=== PATIENT | female | born 1990 | race Caucasian/White ===

== ENCOUNTER → 2016-08-12 | Outpatient (CLI) | payer BC ==
--- NOTE | 2016-08-12 14:05 | US ---
EXAMINATION TYPE: US OB <= 14 wk fetus DATE OF EXAM: 08/12/2016 11:52 AM COMPARISON: NONE CLINICAL HISTORY: Comfrm Dates Z36. EXAM PERFORMED: OBTA EXAM MEASUREMENTS: GESTATIONAL AGE / DATING Physician Established: (10 weeks/4 days) EDC: 03/06/2017 Dates by LMP: [email or web address] Dates by First Scan: MEDICAL AUTHORIZATION SPECIALIST Dates by Current Scan for: (9 weeks/1 days) EDC: 03/16/2017 MATERNAL ANATOMY Uterus: 10.0 x 7.8 x 7.1cm Right Ovary: 3.7 x 3.1 x 3.6cm Left Ovary: 2.9 x 3.0 x 2.5cm Post CDS / Adnexa: wnl Presence of free fluid: no Presence of corpus luteal cyst: yes, right = 2.8cm Presence of subchorionic bleed: no GESTATION / SURVEY CRL: 2.4cm (9 weeks/1 days) MSD: wnl Yolk Sac (normal less than 6mm): 0.4cm Heart Rate: 176 bpm Rhythm: Normal IUP: Viable IUP Date of LMP: unknown Beta HcG (if available): not available TECHNOLOGIST IMPRESSION: Viable 9w1d fetus seen and appears wnl IMPRESSION: Single viable intrauterine corresponding to ultrasound age 9 weeks 1 day with estimated evelin e of delivery second March 2017 by today's exam
== END | disposition home or self-care (01) ==
LOC: RADUSWWP 11:17
PROVIDERS: ATTEND Obstetrics & Gynecology
DX: Z36 Encounter for antenatal screening of mother (principal); Z3A.09 9 weeks gestation of pregnancy
CPT/HCPCS: 76801

== ENCOUNTER → 2016-08-29 | Outpatient (CLI) | payer BC ==
[2016-08-29 13:03] LABS: CH 31.9; CHCM 33.7; HCT 38.8 % (34.0-46.0); HDW 2.11; HGB 12.6 gm/dL (11.4-16.0); MCH 30.9 pg (25.0-35.0); MCHC 32.5 g/dL (31.0-37.0); RBC 4.09 m/uL (3.80-5.40); RDW 11.6 % (11.5-15.5); WBC 6.4 k/uL (3.8-10.6)
[2016-08-29 13:36] LABS: Glucose 75 mg/dL (74-99); Non-African American GFR(MDRD) >60 (>60 ml/min/1.73 sqM)
[2016-08-29 14:08] LABS: Hepatitis B Surface Ag Index 0.08
[2016-08-30 05:31] LABS: Toxoplasma Antibody (IgG) <3.0 IU/mL (<7.2)
[2016-08-31 15:47] LABS: HIV-1/HIV-2 Ab Screen NONREAC (NON REAC)
== END | disposition home or self-care (01) ==
LOC: LABWHC1 12:30
PROVIDERS: ATTEND Obstetrics & Gynecology
DX: Z34.81 Encounter for supervision of other normal pregnancy, first trimester (principal); Z3A.00 Weeks of gestation of pregnancy not specified
CPT/HCPCS: 36415; 82565; 82947; 85027; 86762; 86777; 86778; 86780; 86850; 86900; 86901; 87340; 87389

== ENCOUNTER → 2016-10-02 | Outpatient (CLI) | payer BC ==
[2016-10-03 11:56] LABS: Alpha Fetoprotein 34.7 ng/mL; Alpha Fetoprotein (M.O.M) 0.93; B-HCG (M.O.M.) 0.57; Gestational Age (days) 3; Human Chorionic Gonadotropin 20.1 IU/mL; Interpretation SeeBelow; Maternal Age at EDD (Yrs) 25; Unconjugated Estriol (M.O.M.) 1.27
== END ==
LOC: LABWHC1 12:50
PROVIDERS: ATTEND Obstetrics & Gynecology
DX: Z34.02 Encounter for supervision of normal first pregnancy, second trimester (principal); Z3A.00 Weeks of gestation of pregnancy not specified
CPT/HCPCS: 36415; 82105; 82677; 84702; 86336

== ENCOUNTER → 2016-12-11 | Outpatient (CLI) | payer BC ==
[2016-12-11 10:57] LABS: CH 32.6; CHCM 33.6; HCT 33.2 % (34.0-46.0); HDW 2.24; MCH 32.3 pg (25.0-35.0); MCHC 33.1 g/dL (31.0-37.0); MCV 97.4 fL (80.0-100.0); Mean Platelet Volume 8.4; RDW 12.8 % (11.5-15.5); WBC 8.4 k/uL (3.8-10.6)
== END | disposition home or self-care (01) ==
LOC: LABWHC1 09:07
PROVIDERS: ATTEND Obstetrics & Gynecology
DX: Z34.82 Encounter for supervision of other normal pregnancy, second trimester (principal); Z3A.00 Weeks of gestation of pregnancy not specified
CPT/HCPCS: 36415; 82950; 85027

== ENCOUNTER 2017-02-21 06:17 | Outpatient (CLI) | payer BC ==
[2017-02-21 06:59] VITALS: BP 111/65; PULSE 106; RESP 15; TEMP 97.5
--- NOTE | 2017-02-21 10:16 | P.MSEPDOC ---
Presenting Problems - Arrival Data Date of Arrival on Unit: 02/21/17 Time of Arrival on Unit: 06:15 Mode of Transport: Wheelchair - Complaint OB-Reason for Admission/Chief Complaint: Decreased Movement Medical History - Information : 1 Para: 0 Term: 0 : 0 Abortions: Spontaneous or Elective: 0 Number of Living Children: 0 - Gestational Age Expected Date of Delivery: 03/16/17 Gestational Age by TRINO (wks/days): 36 Weeks and 5 Days Review of Systems - Review of Systems Constitutional: No problems Breast: No problems ENT: No problems Cardiovascular: No problems Respiratory: No problems Gastrointestinal: No problems Genitourinary: No problems Musculoskeletal: No problems Neurological: No problems Skin: No problems Vital Signs - Temperature Temperature: 97.5 F Temperature Source: Temporal Artery Scan - Pulse Pulse Oximetery Pulse Rate: 106 Pulse Assessment Method: Pulse Oximetry - Respirations Respiratory Rate: 15 Oxygen Delivery Method: Room Air - Blood Pressure Right Arm Blood Pressure: 111/65 Blood Pressure Mean: 80 Blood Pressure Source: Automatic Cuff Medical Screen Scoring (Pre) - Cervical Exam Dilation: Exam Deferred Effacement: Exam Deferred Membranes: Intact - Uterine Contractions Frequency: N/A Duration: N/A Intensity: N/A - Maternal Vital Signs Maternal Temperature: N/A Maternal Blood Pressure: N/A Signs of Preeclampsia: N/A Maternal Respirations: N/A - Maternal Trauma Maternal Trauma: N/A - Assessment Baseline FHR: 145 Heart Rate - NICHD Category: Category I (Normal) = 0 NST: Reactive Position: N/A Station: N/A - Total Score Total Score (Pre): 0 - Level of Risk Level of Risk: Low (0-5) Physician Notification (Pre) - Physician Notified Physician Notified Date: 02/21/17 Physician Notified Time: 06:48 Physician/Practitioner Notifed:: Dr Pak New Order Received: Yes Disposition - Disposition OB Disposition: Discharge to home Discharge Date: 02/21/17 Discharge Time: 06:59 I agree with the RN Medical Screening Exam: Yes Risk & Benefit of care provided described in d/c instruction: Yes Diagnosis: DECREASED MOVEMENTS, THIRD TRIMESTER, FETUS 1
== END 2017-02-21 07:00 | disposition home or self-care (01) ==
LOC: FBPOP 06:17
PROVIDERS: ATTEND Obstetrics & Gynecology
DX: O36.8130 Decreased fetal movements, third trimester, not applicable or unspecified (principal); Z3A.36 36 weeks gestation of pregnancy
CPT/HCPCS: 59025; 99213

== ENCOUNTER 2017-03-18 01:20 | Inpatient (IN) | payer BC ==
[2017-03-18] MEDS ORDERED: CARBOPROST TROMETHAMINE 250 MCG/ML 1 ML AMP IM PRN (01:35)
[2017-03-18] MEDS ORDERED: TERBUTALINE 1 MG/ML VIAL SQ PRN (01:35)
[2017-03-18] MEDS ORDERED: OXYTOCIN 10 UNIT/ML 1 ML VIAL IM PRN (01:35)
[2017-03-18] MEDS ORDERED: LIDOCAINE 1% (PF) 10 MG/ML (30 ML SDV) SQ PRN (01:35)
[2017-03-18] MEDS: LACTATED RINGERS 1,000 ML IV SCH ×2 (01:35→05:37)
[2017-03-18] MEDS ORDERED: METHYLERGONOVINE 0.2 MG/ML 1 ML AMP IM PRN (01:35)
[2017-03-18 01:53] LABS: Basophils % (A) 0 %; CH 32.3; CHCM 32.6; Eosinophils # (A) 0.1 k/uL (0-0.7); Eosinophils % (A) 1 %; HDW 2.16; HGB 12.7 gm/dL (11.4-16.0); Luc # (Auto) 0.15; Luc % (Auto) 2; Lymphocytes # (A) 1.2 k/uL (1.0-4.8); Lymphocytes % (A) 16 %; MCH 32.4 pg (25.0-35.0); MCHC 32.5 g/dL (31.0-37.0); MCV 99.8 fL (80.0-100.0); Mean Platelet Volume 9.2; Monocytes # (A) 0.5 k/uL (0-1.0); Monocytes % (A) 7 %; Neutrophils # (A) 5.6 k/uL (1.3-7.7); Neutrophils % (A) 74 %; RBC 3.91 m/uL (3.80-5.40); RDW 12.6 % (11.5-15.5); WBC 7.6 k/uL (3.8-10.6); WBC (Perox) 7.88
[2017-03-18] MEDS ORDERED: BUTORPHANOL 1 MG/ML 1 ML VIAL IV PRN (02:09)
[2017-03-18 02:16] VITALS: BMI 28.6
--- NOTE | 2017-03-18 05:26 | P.HPOB ---
History of Present Illness H&P Date: 03/18/17 Chief Complaint: Contractions This is a 26-year-old female 1 para 0 with an estimated date of confinement of 03/16/2017, estimated gestational age of 40-2/7 weeks, who presents to labor and delivery with complaints of contractions since yesterday. She stated she had contractions all day long became stronger early this morning. She denies any rupture of membranes. care has been with Dr. Ace and she actually was scheduled for an induction of labor this morning. She states her course is been uncomplicated and her labs have been normal. labs: GC/chlamydia-negative Syphilis antibody-negative HIV-nonreactive Toxoplasma-negative Random glucose-75 Hepatitis B surface antigen-negative Hemoglobin-12.6 Rubella-immune Blood type-AB+ Antibody screen-negative Quad screen-negative Obstetrical ultrasound-normal anatomy One hour Glucola-68 Group B streptococcus-negative Obstetrical history: This is her first . Gynecologic history: Unremarkable. Social history: She is . She is unemployed. Review of Systems Constitutional: Denies chills, Denies fever Eyes: denies blurred vision, denies pain Ears, nose, mouth and throat: Denies headache, Denies sore throat Cardiovascular: Denies chest pain, Denies shortness of breath Respiratory: Denies cough Gastrointestinal: Reports abdominal pain (Contractions) Genitourinary: Reports pelvic pain, Reports Musculoskeletal: Reports low back pain Integumentary: Denies pruritus, Denies rash Neurological: Denies numbness, Denies weakness Psychiatric: Reports anxiety Past Medical History Additional Past Medical History / Comment(s): interstitial cystitis History of Any Multi-Drug Resistant Organisms: None Reported Past Surgical History: Tonsillectomy Additional Past Surgical History / Comment(s): childhood Past Anesthesia/Blood Transfusion Reactions: No Reported Reaction Past Psychological History: Anxiety Smoking Status: Never smoker Past Alcohol Use History: None Reported Past Drug Use History: None Reported - Past Family History Father Family Medical History: Diabetes Mellitus Medications and Allergies Home Medications Medication Instructions Recorded Confirmed Type Citalopram Hydrobromide [CeleXA] 10 mg PO DAILY 02/21/17 03/18/17 History Pnv No.95/Ferrous Fum/Folic AC 1 tab PO DAILY 02/21/17 03/18/17 History [ Multivitamin Tablet] Allergies Allergy/AdvReac Type Severity Reaction Status Date / Time Penicillins Allergy Rash/Hives Verified 03/18/17 01:35 sulfamethoxazole Allergy Rash/Hives Verified 03/18/17 01:35 [From Bactrim] trimethoprim [From Bactrim] Allergy Rash/Hives Verified 03/18/17 01:35 Exam Osteopathic Statement: *. No significant issues noted on an osteopathic structural exam other than those noted in the History and Physical/Consult. - Vital Signs Vital signs: Vital Signs Temp Pulse Resp BP 03/18/17 02:11 97.3 F L 91 18 119/69 Intake and Output 03/17/17 03/17/17 03/18/17 14:59 22:59 06:59 Other: Weight 78.018 kg Patient Weight 03/18/17 06:59 Weight 78.018 kg HEENT: Within normal limits Heart: Regular rate and rhythm Lungs: Clear to auscultation bilaterally Abdomen: Cervix: Approximately 7 cm/90%/-1 station. Artificial rupture of membranes is carried out with fairly clear fluid with a yellow tinge. heart tones: Reactive Contractions: Approximately every 2-3 minutes Extremities: Negative Homans Results Result Diagrams: 03/18/17 01:45 Abnormal Lab Results - Last 24 Hours (Table) 03/18/17 Range/Units 01:45 Plt Count 148 L (150-450) k/uL Assessment and Plan (1) 40 weeks gestation of Status: Acute (2) Normal labor Status: Acute Plan: Admission for active labor. Expectant management. Patient currently denies any needs for pain medication.
[2017-03-18] MEDS: OXYTOCIN 20 UNITS/1000 ML NS 1,000 ML IV SCH ×2 (09:56→09:57)
[2017-03-18] MEDS ORDERED: ZOLPIDEM 5 MG TAB PO PRN (10:47)
[2017-03-18] MEDS ORDERED: diphenhydrAMINE 50 MG CAP PO PRN (10:47)
[2017-03-18] MEDS ORDERED: diphenhydrAMINE 25 MG CAP PO PRN (10:47)
[2017-03-18] MEDS ORDERED: HYDROCORTISONE 2.5% RECTAL CREAM 30 GM TUBE RECTAL PRN (10:47)
[2017-03-18] MEDS ORDERED: LANOLIN CREAM 5 GM TUBE TOPICAL PRN (10:47)
[2017-03-18] MEDS ORDERED: BENZOCAINE/MENTHOL SPRAY 1 GM/SPRAY AEROSOL TOPICAL PRN (10:47)
[2017-03-18] MEDS ORDERED: WITCH HAZEL 1 EACH MED..PAD TOPICAL PRN (10:47)
[2017-03-18] MEDS ORDERED: Acetaminophen-Codeine 300-30mg TAB PO PRN ×2 (10:47)
[2017-03-18] MEDS: IBUPROFEN 600 MG TAB PO PRN ×2 (10:54→19:23)
--- NOTE | 2017-03-18 12:36 | P.PROBDLV ---
Vaginal Delivery Note - . Vaginal Delivery Note: 26-year-old presents at 40 weeks and 2 days in active labor. Her cervix was 7 cm dilated, 90% effaced, and -1 station. heart tones 140-145 with moderate variability and reactive. Amniotomy was performed at 5:14 AM and clear fluid noted. She progressed to complete at 8:43 AM, pushed, and delivered a viable male infant at 9:50 AM over midline episiotomy. Head delivered BEHZAD, anterior shoulder which was the right shoulder delivered gentle downward traction followed by posterior shoulder and rest of body. Nose and mouth bulb suctioned, cord clamped and cut, placed on mother's abdomen. Apgars 8, 9, weight 8 lbs. 11 oz. Placenta delivered spontaneously, intact with three-vessel cord at 9:53 AM. Vagina, cervix, and perineum were inspected. Second-degree midline episiotomy was repaired with 2-0 and 3-0 Vicryl. Estimated blood loss 200 mL. Mother and baby were in stable condition.
[2017-03-18] MEDS: ACETAMINOPHEN TAB 325 MG TAB PO PRN (16:51)
[2017-03-18] MEDS: SENNOSIDES-DOCUSATE SODIUM 1 EACH TAB PO SCH (20:14)
[2017-03-19] MEDS: IBUPROFEN 600 MG TAB PO PRN (00:38)
[2017-03-19] MEDS: ACETAMINOPHEN TAB 325 MG TAB PO PRN (08:20)
[2017-03-19 09:23] VITALS: BP 110/67; PULSE 83; RESP 18; TEMP 97.8
[2017-03-19] MEDS: SENNOSIDES-DOCUSATE SODIUM 1 EACH TAB PO SCH (09:31)
--- NOTE | 2017-03-19 09:44 | P.DS ---
Providers Date of admission: 03/18/17 01:20 Expected date of discharge: 03/19/17 Attending physician: Sachi Ace Primary care physician: Stated None - Discharge Diagnosis(es) (1) Normal vaginal delivery Current Visit: Yes Status: Acute Hospital Course: Patient presented in active labor. She underwent normal vaginal delivery. Her course uncomplicated. She'll be discharged home day #1 in stable condition to follow-up with me in 6 weeks. Plan - Discharge Summary New Discharge Prescriptions: New Ibuprofen [Motrin] 600 mg PO Q6HR PRN #30 tab PRN Reason: Mild Pain Or Fever >= 100.5 No Action Pnv No.95/Ferrous Fum/Folic AC [ Multivitamin Tablet] 1 tab PO DAILY Citalopram Hydrobromide [CeleXA] 10 mg PO DAILY Discharge Medication List Citalopram Hydrobromide [CeleXA] 10 mg PO DAILY 02/21/17 [History] Pnv No.95/Ferrous Fum/Folic AC [ Multivitamin Tablet] 1 tab PO DAILY 03/01 [History] Ibuprofen [Motrin] 600 mg PO Q6HR PRN #30 tab 03/19/17 [Rx] Follow up Appointment(s)/Referral(s): Sachi Ace DO [Doctor of Osteopathic Medicine] - 6 Weeks
== END 2017-03-19 15:54 | disposition home or self-care (01) | DRG 775 ==
LOC: 4FBP 01:20
PROVIDERS: ADMIT Obstetrics & Gynecology; ATTEND Obstetrics & Gynecology
PROC: 10907ZC Drainage of Amniotic Fluid, Therapeutic from Products of Conception, Via Natural or Artificial Opening (ICD-10-PCS; principal; 2017-03-18)
PROC: 0W8NXZZ Division of Female Perineum, External Approach (ICD-10-PCS; principal; 2017-03-18)
PROC: 10E0XZZ Delivery of Products of Conception, External Approach (ICD-10-PCS; principal; 2017-03-18)
DX: O48.0 Post-term pregnancy (principal); O99.344 Other mental disorders complicating childbirth; F41.9 Anxiety disorder, unspecified; Z37.0 Single live birth; Z3A.40 40 weeks gestation of pregnancy; Z79.899 Other long term (current) drug therapy; Z88.0 Allergy status to penicillin; Z88.2 Allergy status to sulfonamides
CPT/HCPCS: 85025; 88307